=== PATIENT | male | born 2005 | race Caucasian/White ===

== ENCOUNTER 2025-03-07 19:52 | Inpatient (IN) | payer BC ==
[~2025-03-07] VITALS: Ht 175.3 cm; Wt 75.0 kg
[2025-03-07 20:24] LABS: MEAN PLATELET VOLUME 8.8 FL (7.4-10.4); RED CELL DISTRIBUTION WIDTH 12.0 % (11.5-14.5)
[2025-03-07] MEDS: ondansetron/PF 4mg/2ml inj IV ONE (20:24)
[2025-03-07 20:38] LABS: CREATININE 1.16 MG/DL (0.60-1.10); TOTAL CARBON DIOXIDE 16.3 MMOL/L (24-32); eCRCL 102 ML/MIN; eGFR 80 ML/MIN
[2025-03-07] MEDS: ringers solution, lacted 1,000 ML IV ONE (20:43)
--- NOTE | 2025-03-07 20:51 | Physician Documentation ---
History of Present Illness ~ Chief Complaint: Diabetic Complication Stated Complaint: GENERAL WEAKNESS Time Seen by MD: 20:10 HPI A 19-year-old male brought to the emergency department for evaluation of suspected high blood sugar. Patient is a well known type 1 diabetic. Has not insulin pump and a glucose monitor. States he was doing excessive labor that he feels may have triggered his episode of weakness, tachycardia nausea or vomiting with suspected elevated blood sugar. Patient's glucose monitoring device was dislodged from his extremity during the excessive lifting and moving. Patient began to feel shaky began to feel that maybe his blood sugar was going low. He went to a local coffee shop and purchase caffeinated sugar product. Continued to have nausea and vomiting and was brought to the emergency department. Upon arrival in the emergency department patient's insulin pump was interrogated and continues to work. He has received a 1.4 units of Humalog per hour. Patient additionally does have active vomiting. Bedside blood sugar check was initially 253. States he is a little bit admitted once for DKA. Denies any recent symptoms of chest pain, cough, productive sputum recent illness or injuries or travels. No reported dysuria. He is in the process of transgender ring and is on estrogen and spironolactone. Medication Reconciliation Allergies: Coded Allergies: No Known Allergies (Unverified , 03/07/25) Scheduled Estradiol (Estradiol), 1 TAB PO BID, (Reported) Spironolactone (Spironolactone), 1 TAB PO BID, (Reported) Review of Systems Constitutional: Reports: chills, diaphoresis, malaise, weakness Gastrointestinal: Reports: abdominal pain, nausea, vomiting Musculoskeletal: Reports: pain Integumentary: Denies: rash Hematologic/Lymphatic: Denies: blood clots, easy bleeding, easy bruising Endocrine: Reports: excessive sweating, flushing, increased hunger, increased thrist Psychiatric: Reports: no symptoms reported Physical Exam Vital Signs: Temperature: 97.6, Source: Oral, Heart Rate: 96, Respiratory Rate: 18, BP: 110/65, Pulse Oximetry: 100, Weight: 79.000 General Appearance: alert, ill-appearing, moderate distress ENT: normal ENT inspection Sinus: normal inspection Neck: non-tender Respiratory: lungs clear, normal breath sounds Chest: no accessory muscle use Cardiovascular: tachycardia; No: diastolic murmur, systolic murmur Gastrointestinal: normal palpation Rectal: deferred Back: normal inspection Extremities: normal inspection, normal capillary refill Skin: pallor Lymphatic: no adenopathy Neurologic: oriented x4 Psychiatric: appropriate, anxious Progress Results/Orders Results/Orders Orders - SUSANNE NELSON Hospitalist (03/07/25 20:42) Fill Out Med Reconciliation (03/07/25 20:42) Completed Orders - SUSANNE NELSON PAC Ondansetron Inj. (Zofran 4mg/2ml Vial) (03/07/25 20:20) Ringers Solution, Lacted (Lactated Ringe (03/07/25 20:40) Acetone, Serum (03/07/25 20:39) Normal Saline 1000ml (0.9% Sodium Chlori (03/07/25 20:44) Vital Signs 03/07/25 03/07/25 20:07 20:47 Temp 97.6 Pulse 96 92 Resp 18 18 B/P (MAP) 110/65 124/69 (87) Pulse Ox 100 98 O2 Flow Rate 0 Laboratory Tests Test 03/07/25 20:02 03/07/25 20:06 03/07/25 20:41 03/07/25 20:54 Glucometer 242 H 230 H White Blood Count 19.2 H Red Blood Count 4.99 Hemoglobin 14.9 Hematocrit 42.0 Mean Corpuscular Volume 84.2 Mean Corpuscular Hemoglobin 29.9 Mean Corpuscular Hemoglobin Concent 35.5 Red Cell Distribution Width 12.0 Platelet Count 338 Mean Platelet Volume 8.8 Neutrophils (%) (Auto) 87.8 H Lymphocytes (%) (Auto) 6.2 L Monocytes (%) (Auto) 5.5 Eosinophils (%) (Auto) 0.3 Basophils (%) (Auto) 0.2 Neutrophils # (Auto) 16.8 H Lymphocytes # (Auto) 1.2 Monocytes # (Auto) 1.1 H Eosinophils # (Auto) 0.1 Basophils # (Auto) 0.0 CBC Comment Sodium Level 141 Potassium Level 3.6 Chloride Level 101 Carbon Dioxide Level 16.3 L Anion Gap 24 H Blood Urea Nitrogen 23 H Creatinine 1.16 H Estimated GFR/1.73 m2 80 BUN/Creatinine Ratio 19.8 Glucose Level 220 H Hemoglobin A1c 6.5 H Calcium Level 9.9 Phosphorus Level 1.7 L Magnesium Level 1.7 Total Bilirubin 1.9 H Aspartate Amino Transf (AST/SGOT) 22 Alanine Aminotransferase (ALT/SGPT) 20 Alkaline Phosphatase 73 Total Protein 8.6 H Albumin 4.9 Globulin 3.7 Albumin/Globulin Ratio 1.3 Lipase 10 L Chemistry Comments Acetone Level Negative Test 03/07/25 21:32 Glucometer 223 H Medical Decision Making Differential Diagnosis 19-year-old male brought to the emergency department with suspected type 1 diabetic complications differentials to include DKA, HHNK and hypoglycemia versus hyperglycemia, heat exhaustion and/or acute coronary event or acute infectious process. O2 saturations at 100% making clinical suspicion for cardiopulmonary etiology such as CHF, pulmonary embolus or pneumonia not likely. Treatment rendered upon patient's arrival included initial bedside glucose monitoring, vital signs stabilization with IV fluid boluses x2. No requirement for O2 oxygenation. He is screening labs were obtained and reviewed by myself. Patient noted to have low CO2 his gap is open to 24 his blood sugar was 231. Patient has a pending urinalysis screening. White blood cell count was elevated at 19. Suspect this is secondary to demargination from the vomiting. Nausea and vomiting was mitigated with 8 mg of Zofran. Patient has had continued to receive IV hydration. Patient's potassium within normal limits not requiring supplementation. Decision to admit was upon patient's arrival to the emergency department consultation to the hospitalist after reviewing the patient's labs. Patient continues to stabilize with IV hydration not requiring additional insulin. Again his insulin pump was interrogated and continues to be working. Case discussed fully with hospitalist who will admit patient to the hospital. Repeated BNP shows mild correction in the positive way with renal functions, closing of [place] gap and CO2. Patient received continued bedside nursing care and eventually was transported to the floor in safe stable condition with out nausea or vomiting and requesting food. Suspect over exhaustion may have caused patient to become hypoglycemic for triggered hyperglycemic episode and then with the additional carbohydrate load patient put himself in crisis. Departure Disposition: ADMITTED INPATIENT Admitted to Inpatient Unit: to hospitalist Impression: Primary Impression: Hyperglycemic crisis in diabetes mellitus Additional Impression: Diabetes mellitus with ketoacidosis Qualified Codes: E10.10 - Type 1 diabetes mellitus with ketoacidosis without coma Referrals: NO PRIMARY CARE PROVIDER (PCP) Signature Scribe Signature: . Attestation: . SUSANNE NELSON PAC Mar 07, 2025 20:51
[2025-03-07] MEDS: normal saline 1000ml 1,000 ML IV STA (21:06)
[2025-03-07 21:33] LABS: ACETONE NEGATIVE (NEGATIVE)
[2025-03-07 21:50] LABS: LEUKOCYTE ESTERASE ,URINE SMALL (Neg); NITRITES, URINE NEGATIVE (Neg); OCCULT BLOOD,URINE NEGATIVE (Neg)
[2025-03-07 21:51] LABS: UA COLLECTION TYPE NON-SPECIFIED
[2025-03-07 21:56] LABS: MUCUS STRANDS FEW /LPF (Neg); SQUAMOUS EPITHELIAL CELL,UR FEW /LPF (FEW)
[2025-03-07] MEDS ORDERED: SPIR50TA5 PO (22:24)
[2025-03-07] MEDS ORDERED: ESTR2TAB50 PO (22:24)
[2025-03-07] MEDS ORDERED: magnesium Cl slow-release 64mg tablet PO PRN (22:50)
[2025-03-07] MEDS ORDERED: potassium Cl 20 mEq SR tablet PO PRN (22:50)
[2025-03-07] MEDS ORDERED: potassium Cl 40MEQ/1/2NS 520ml 520 ML IV PRN (22:50)
[2025-03-07] MEDS ORDERED: ondansetron/PF 4mg/2ml inj IV PRN (22:50)
[2025-03-07] MEDS ORDERED: magnesium sulf-water 2g/50mL 50 ML IV PRN (22:50)
[2025-03-07] MEDS ORDERED: magnesium hydroxide 30ml (MOM) UD suspension PO PRN (22:50)
[2025-03-07] MEDS ORDERED: mag hydrox/Alum hydrox/simeth 30ml oral suspension PO PRN (22:50)
[2025-03-07] MEDS: normal saline 1000ml 1,000 ML IV SCH (22:50)
[2025-03-07] MEDS ORDERED: magnesium sulf-water 4G/100mL 100 ML IV PRN (22:50)
[2025-03-07 22:58] LABS: CREATININE 1.03 MG/DL (0.60-1.10); TOTAL CARBON DIOXIDE 19.3 MMOL/L (24-32); eCRCL 114 ML/MIN; eGFR > 90 ML/MIN
--- NOTE | 2025-03-07 23:50 | HISTORY AND PHYSICAL-Residence ---
History & Physical Providers to CC Resident Creating Document: JOVITA JOSE, ALEJANDRO ~ History of Present Illness Reason for Admit\Complaint: Weakness History of Present Illness A 19-year-old transgender woman (assigned male at , identifies as female) with a history of type 1 diabetes mellitus (diagnosed 7 years ago) and currently on insulin pump therapy, presented with excessive fatigue, nausea, and multiple episodes of vomiting (5) over the past few hours. 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 During work, her insulin pump became dislodged, and she consumed carbohydrates at a coffee shop believing she was hypoglycemic. Patient uses insulin pump with 33 units of basal and 03/21/10 units of bolus insulin. She has generally well-controlled diabetes (A1C 6.5%) and no recent DKA episodes aside from one episode on diagnosis. She is on gender-affirming hormone therapy with estradiol and spironolactone. On presentation, she was alert and oriented, without delirium. Vitals were stable. Laboratory studies showed: glucose 242 / 230 / 223 mg/dL, bicarbonate 16.3 on admission increased to 19.3 mmol/L, creatinine 1.16 trending down to 1.03 mg/dL, WBC 19.2, mild asymptomatic bacteriuria, and negative acetone. She received 2 L IV fluids and is on maintenance normal saline at 100 mL/hr. Her current clinical picture suggests mild metabolic derangement secondary to dehydration, fasting/starvation ketosis, and possibly mild euglycemic ketosis, which is improving. Primary care provider: Michael Farmer Stone Grader: Ruba Hu [facility] Lives at home with family Allergies: Coded Allergies: No Known Allergies (Unverified , 03/07/25) Home Medications Home Medications Active Reported Spironolactone 50 Mg Tablet 1 Tab PO BID Estradiol 2 Mg Tablet 1 Tab PO BID Past Medical History Past Medical History Type 1 diabetes mellitus Gender dysphoria Past Surgical History Surgical History Comment No past surgical history Past Social History Social History Comment Denied smoking, alcohol, illicit use of drugs ROS ROS Constitutional: Mild fatigue Eyes: No pain, erythema, discharge, blurring of vision ENT: No sore throat, epistaxis, tinnitus Cardiovascular: No Shortness of breath. Chest pressure, chest discomfort, palpitations, syncope, lower extremity edema, paroxysmal nocturnal dyspnea Respiratory: Shortness of breath and cough present, No hemoptysis Gastrointestinal: Normal appetite. No nausea, vomiting, diarrhea, constipation, hematemesis, abdominal pain, bloating, melena or fresh blood Musculoskeletal: No chronmic edema. Integumentary: No change in skin, hair, nails. No swelling, bruising, abrasions Neurologic: No headache, neck pain, numbness or tingling of the extremities, weakness Psychiatric: No delusions, depression, loss of interest in normal activity or change in sleep pattern, hallucinations, suicidal ideations Endocrine: No fatigue, weakness, polydipsia, polyuria, change in appetite, heat or cold intolerance, sweating, dry skin Hematological: No bleeding, petechiae, bruising Allergies: No asthma or urticaria Exam Vitals: Vital Signs Date Time Temp Pulse Resp B/P (MAP) Pulse Ox O2 Delivery O2 Flow Rate FiO2 03/07/25 23:28 22 03/07/25 22:30 63 97 03/07/25 20:47 0 03/07/25 20:07 97.6 General: Awake , alert, and oriented x4, resting comfortably in the bed, in no acute distress HEENT: Atraumatic, normocephalic, EOMI, anicteric sclera ; pink conjunctiva Neck: Trachea midline. Supple, full range of motion, no JVD Cardiac: Regular rhythm, regular rate with no murmurs all over the precordium. Respiratory: Equal breath sounds bilaterally, no tachypnea, no wheezing ,rub or rales, Chest wall is symmetric and without deformity. Gastrointestinal: Abdomen symmetric, non-distended, soft, non-tender, normal bowel sounds x4 quadrant, normoactive, no hepatosplenomegaly Musculoskeletal: No pedal edema, no cyanosis Neurological: Mental status exam: alert and consciousness, orientation, memory, speech - Cranial nerve test: Cranial nerves 2-12 intact - Motor system: Nutrition, Tone 3+, Power 5/5, no involuntary movements - Sensory system: Intact - Reflex testing: Biceps, triceps and knee reflexes 2+ - Cerebellar: Normal Skin: Warm and dry Diagnostic Data Last Recorded Lab Results: 03/07/25200503/07/25 8752 Advance Care Planning Advanced Care plannin - 30 Minutes Additional Plan 1.Type 1 Diabetes Mellitus Stable, mild metabolic derangement High anion gap metabolic acidosis, mild DKA versus starvation/ Patient with insulin pump therapy, blood glucose ~220 mg/dL, bicarbonate 1617 improving, anion gap decreasing, and blood acetone negative Interpretation: Mild metabolic disturbance likely due to dehydration and fasting/starvation Urine ketones positive (80) Plan: Started IV regular insulin infusion 0.1 units/kg/hr, as glucose levels were trending up gradually Target: decrease glucose by 5075 mg/dL per hour. Once glucose <200 mg/dL, reduce insulin infusion to 0.020.05 units/kg/hr and add dextrose, Continue insulin pump therapy (33 units basal and 10/05/10 units bolus) after anion gap closes Overlap insulin drip with subcutaneous basal insulin by 12 hours (using insulin pump) Resume patients home regimen or adjust based on endocrinology consult Resume oral intake as tolerated Monitor blood glucose every 23 hours 2.Volume Depletion / Dehydration Likely secondary to vomiting, poor oral intake, and heat exposure Patient received 2 L of boluses (LR and NS) in the ED Plan: Ordered additional 2 L of LR boluses (patient has received total of 4 L boluses) Continue IV fluids (NS) with monitoring of urine output, electrolytes, and renal function LR at 250 cc/hours, maintenance fluid Transition to oral hydration as tolerated Monitor vital signs and clinical status for ongoing fluid losses 3.Mild Leukocytosis / Possible UTI UA shows asymptomatic bacteriuria; WBC 19.2 may reflect stress response. Plan: Pending urine cultures Hold antibiotics unless patient develops symptoms (fever, dysuria) or infections Trend WBC 4.Electrolyte / Potassium Management Patient is on spironolactone and insulin (via pump), both affecting potassium Plan: Monitor K+ every 6 hours while correcting fluids and managing insulin therapy Replete potassium as indicated: If K+ <4.0 mmol/L, consider oral or IV replacement Avoid overcorrection; monitor for arrhythmias or ECG changes Adjust insulin therapy carefully to prevent hypokalemia EKG ordered 5.Gender-Affirming Hormone Therapy On estradiol and spironolactone. Plan: Continue once patient tolerating oral intake. Monitor potassium and renal function closely Disposition: Admit for monitoring and correction of mild metabolic derangements Educate regarding recognition of early warning signs of DKA. Continue frequent glucose and electrolyte monitoring until stable Code Status: Full code DVT Prophylaxis: Heparin SQ Line/tubes: P IV Nutrition: Carb controlled diet Prognosis: Guarded Jovita Jose MD Internal Medicine Resident, PGY-2 Patient assessed , case discussed with resident . I agree with the assessment and plan above with no changes. Luz Marina Ramos MD Critical Care Date of Service: Mar 08, 2025 Billing Provider: LUZ MARINA RAMOS MDLUCINAV, RES Mar 07, 2025 23:50 LUZ MARINA RAMOS MD Mar 11, 2025 16:43
[2025-03-08] VITALS (9 sets, daily range): BP systolic 101–115; BP diastolic 43–66; PULSE 65–100; RESP 12–22; TEMP 97.8–98.7; O2SAT 95–100
[2025-03-08] MEDS ORDERED: potassium Cl 40MEQ/1/2NS 520ml 520 ML IV PRN ×2 (00:20→02:20)
[2025-03-08] MEDS ORDERED: magnesium sulf-water 2g/50mL 50 ML IV PRN ×2 (00:20→02:20)
[2025-03-08] MEDS ORDERED: potassium Cl 40MEQ/270ML bag 270 ML IV PRN ×2 (00:20→02:20)
[2025-03-08] MEDS ORDERED: sodium phos 15mmol/D5 255mL 255 ML IV PRN ×2 (00:20→02:20)
[2025-03-08 01:42] LABS: ABG BASE EXCESS -4.0 mmol/L (-2.0-3.0); ABG HCO3 20.5 mmol/L (21.0-28.0); ABG OXYGEN SATURATION 97.4 % (94.0-98.0); ABG PCO2 (T) 35.1 mmHg (35.0-48.0); ABG PH (T) 7.383 (7.350-7.450); ABG PO2 (T) 99.7 mmHg (83.0-108.0); ALLEN'S TEST Modified; FCOHb 0.4 % (0.5-1.5); FHHb 2.6 % (0.0-5.0); FIO2 21.0 mmHg/%; FMetHb 0.1 % (0.0-1.5); FO2Hb 96.9 % (94.0-98.0); MODE ROOM AIR; PATIENT TEMPERATURE 36.6; TOTAL HEMOGLOBIN 13.1 G/dl (13.5-17.5)
[2025-03-08] MEDS ORDERED: Insulin Reg/NS 100units/100mL 100 ML IV SCH (02:20)
[2025-03-08] MEDS ORDERED: dextrose 50%-water 50ml dispensing syringe IV PRN (02:20)
[2025-03-08 02:30] LABS: PHOSPHORUS 1.7 MG/DL (2.3-4.5)
[2025-03-08] MEDS: ringers solution, lacted 1,000 ML IV SCH ×3 (02:48→11:48)
[2025-03-08 03:02] LABS: MEAN PLATELET VOLUME 8.8 FL (7.4-10.4); RED CELL DISTRIBUTION WIDTH 12.3 % (11.5-14.5)
[2025-03-08 03:19] LABS: CHOL/HDL RATIO 2.7 (0.00-4.99); CREATININE 0.86 MG/DL (0.60-1.10); LDL CHOLESTEROL 91 MG/DL (50-100); PHOSPHORUS 4.5 MG/DL (2.3-4.5); TOTAL CARBON DIOXIDE 22.6 MMOL/L (24-32); eCRCL 137 ML/MIN; eGFR > 90 ML/MIN
[2025-03-08] MEDS: heparin, porcine 5000 units/ml vial SQ SCH (08:00)
[2025-03-08] MEDS: K and/or MAG REPLACEMENT MC SCH (08:00)
[2025-03-08] MEDS: sodium phosphate inj. 30 MMOL in dextrose 5%-water 250 ML IV SCH (08:00)
[2025-03-08 08:44] LABS: PHOSPHORUS 3.2 MG/DL (2.3-4.5)
[2025-03-08] MEDS: docusate sod 100mg capsule PO SCH (09:57)
[2025-03-08 10:53] LABS: PHOSPHORUS 1.9 MG/DL (2.3-4.5)
--- NOTE | 2025-03-08 10:59 | ELECTROCARDIOGRAPH REPORT ---
[facility] Test Date: 2025-03-08 Test Time: 10:56:27 Pat Name: SATISH KAISER [facility] Patient ID: [facility]-[id number] Room: [place] [id number] Gender: M Project Facilitator: : 2005 Requested By: JOVITA JOSE Order Number: [id number] Reading MD: Dr. DANIELLA Vela Measurements Intervals [place] Rate: 73 P: 55 SC: 169 QRS: 89 QRSD: 102 T: 54 QT: 370 QTc: 408 Interpretive Statements Sinus rhythm Baseline wander in lead(s) II,III,aVF,V6 Electronically Signed On 03-08-2025 16:06:[address] DANIELLA Vela Please click the below link to view image of tracing.
[2025-03-08] MEDS: potassium Cl 20 mEq SR tablet PO PRN (11:48)
[2025-03-08] MEDS: INSULIN LISPRO 100 UNIT/ML INSULN.PEN MULTI-DOSE SQ SCH (12:00)
--- NOTE | 2025-03-08 19:13 | PROGRESS NOTE ---
Daily Progress Note Providers to CC ~ Antibiotic Timeout Antibiotic Ordered?: No Subjective Patient is 19-year-old transgender. Patient wants to use own insulin pump despite of explaining risk and consequences. Objective Vital Signs Date Time Temp Pulse Resp B/P (MAP) Pulse Ox O2 Delivery O2 Flow Rate FiO2 03/08/25 13:30 98.3 71 17 103/55 (71) 100 Room Air 03/08/25 05:02 0.0 21 Result Diagram: 03/08/25 0240 03/08/25 1010 General-patient not in any acute distress, alert awake , age-appropriate, looks comfortable HEENT-atraumatic normocephalic, neck supple without elevated JVD, no thyromegaly or carotid bruit. No lymphadenopathy bilaterally. Eyes-no icterus or pallor seen in eyes Chest-clear to auscultation bilaterally, breathing nonlabored no tachypnea, no wheezing, no crepitation, no crackles. Heart-S1-S2 normal, regular heart rate no murmur Abdomen bowel sounds positive on auscultation, soft nondistended nontender no guarding, no rigidity Skin no active skin rash Neurology-grossly intact, nonfocal alert awake , Extremity- no pedal edema able to move all 4 extremities Psychiatry - patient is not confused or agitated cooperated during physical examination Problem\Assessment\Plan 1.Type 1 Diabetes Mellitus Stable, mild metabolic derangement High anion gap metabolic acidosis, mild DKA versus starvation/ Patient with insulin pump therapy, blood glucose ~220 mg/dL, bicarbonate 1617 improving, anion gap decreasing, and blood acetone negative Interpretation: Mild metabolic disturbance likely due to dehydration and fasting/starvation Urine ketones positive (80) Plan: Started IV regular insulin infusion 0.1 units/kg/hr, insulin drip stopped today Resumed patients home regimen Resumed oral intake as tolerated Monitor blood glucose every 23 hours 2.Volume Depletion / Dehydration Likely secondary to vomiting, poor oral intake, and heat exposure Patient received 2 L of boluses (LR and NS) in the ED Plan: Ordered additional 2 L of LR boluses (patient has received total of 4 L boluses) Continue IV fluids (NS) with monitoring of urine output, electrolytes, and renal function LR at 200 cc/hours, maintenance fluid Transition to oral hydration as tolerated Monitor vital signs and clinical status for ongoing fluid losses 3.Mild Leukocytosis / Possible UTI UA shows asymptomatic bacteriuria; WBC 19.2 may reflect stress response. Plan: urine cultures currently showing mixed tiffany will Hold antibiotics unless patient develops symptoms (fever, dysuria) or infections Trend WBC 4.Electrolyte / Potassium Management Patient is on spironolactone and insulin (via pump), both affecting potassium Plan: Monitor K+ every 6 hours while correcting fluids and managing insulin therapy Replete potassium as indicated: If K+ <4.0 mmol/L, consider oral or IV replacement Avoid overcorrection; monitor for arrhythmias or ECG changes Adjust insulin therapy carefully to prevent hypokalemia 5.Gender-Affirming Hormone Therapy On estradiol and spironolactone. Plan: Continue once patient tolerating oral intake. Monitor potassium and renal function closely Disposition: Admit for monitoring and correction of mild metabolic derangements Educate regarding recognition of early warning signs of DKA. Continue frequent glucose and electrolyte monitoring until stable Code Status: Full code DVT Prophylaxis: Heparin SQ Line/tubes: P IV Nutrition: Carb controlled diet Patient's current condition is guarded we will continue to follow patient in AM . Date of Service: Mar 08, 2025 Billing Provider: CALEB PHOENIX MD Common Visit Codes: [id number] INP/OBS CARE(HIGH) CALEB PHOENIX MD Mar 08, 2025 19:13
[2025-03-09 04:36] LABS: MEAN PLATELET VOLUME 8.3 FL (7.4-10.4); RED CELL DISTRIBUTION WIDTH 12.3 % (11.5-14.5)
[2025-03-09 04:59] LABS: CREATININE 0.59 MG/DL (0.60-1.10); TOTAL CARBON DIOXIDE 29.4 MMOL/L (24-32); eCRCL 200 ML/MIN; eGFR > 90 ML/MIN
--- NOTE | 2025-03-09 20:10 | DISCHARGE SUMMARY ---
Discharge Summary Providers to CC ~ Discharge Summary Admission Diagnosis: DKA HYPERGLYCEMIC CRISIS Hospital Course DATE OF ADMISSION: 03/07/2025 DATE OF DISCHARGE:03/09/2025 CBC testing done on March 09, 2025 WBC 6.9, hemoglobin 11.7 hematocrit 33.3 platelet count 202. Serum chemistry done on March 09, 2025 sodium 143 potassium 3.4 creatinine 0.59 GFR 90 hemoglobin A1c 6.5. Normal lipid and liver enzymes. Urine culture showed mixed tiffany Discharge Diagnosis\\Comment: Type 1 Diabetes Mellitus Stable, mild metabolic derangement High anion gap metabolic acidosis, mild DKA versus starvation Volume Depletion / Dehydration .Mild Leukocytosis / Possible UTI Electrolyte / Potassium Management Gender-Affirming Hormone Therapy Operations\\Procedures: None Consultants: None Complications: None Condition on DC: Stable Continued Medications: Estradiol (Estradiol) 2 Mg Tablet 1 TAB PO BID Spironolactone (Spironolactone) 50 Mg Tablet 1 TAB PO BID Discharge Summary: As per admitting provider's history and physical note" A 19-year-old [facility] woman (assigned male at , identifies as female) with a history of type 1 diabetes mellitus (diagnosed 7 years ago) and currently on insulin pump therapy, presented with excessive fatigue, nausea, and multiple episodes of vomiting (5) over the past few hours. 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 During work, her insulin pump became dislodged, and she consumed carbohydrates at a coffee shop believing she was hypoglycemic. Patient uses insulin pump with 33 units of basal and 10/05/10 units of bolus insulin. She has generally well-controlled diabetes (A1C 6.5%) and no recent DKA episodes aside from one episode on diagnosis. She is on gender-affirming hormone therapy with estradiol and spironolactone. On presentation, she was alert and oriented, without delirium. Vitals were stable. Laboratory studies showed: glucose 242 / 230 / 223 mg/dL, bicarbonate 16.3 on admission increased to 19.3 mmol/L, creatinine 1.16 trending down to 1.03 mg/dL, WBC 19.2, mild asymptomatic bacteriuria, and negative acetone. She received 2 L IV fluids and is on maintenance normal saline at 100 mL/hr. Her current clinical picture suggests mild metabolic derangement secondary to dehydration, fasting/starvation ketosis, and possibly mild euglycemic ketosis, which is improving" During hospitalization patient was treated for .1.Type 1 Diabetes Mellitus Stable, mild metabolic derangement High anion gap metabolic acidosis, mild DKA versus starvation/ Patient with insulin pump therapy, blood glucose ~220 mg/dL, bicarbonate 1617 improving, anion gap decreasing, and blood acetone negative Interpretation: Mild metabolic disturbance likely due to dehydration and fasting/starvation Urine ketones positive (80) Plan: Started IV regular insulin infusion 0.1 units/kg/hr, insulin drip stopped yesterday Resumed patients home regimen Resumed oral intake as tolerated Monitor blood glucose every 23 hours 2.Volume Depletion / Dehydration Likely secondary to vomiting, poor oral intake, and heat exposure Patient received 2 L of boluses (LR and NS) in the ED Plan: Ordered additional 2 L of LR boluses (patient has received total of 4 L boluses) Continue IV fluids (NS) with monitoring of urine output, electrolytes, and renal function LR at 200 cc/hours, maintenance fluid Transition to oral hydration as tolerated Monitor vital signs and clinical status for ongoing fluid losses 3.Mild Leukocytosis / Possible UTI UA shows asymptomatic bacteriuria; WBC 19.2 may reflect stress response. Plan: urine cultures currently showing mixed tiffany will Hold antibiotics unless patient develops symptoms (fever, dysuria) or infections Trend WBC 4.Electrolyte / Potassium Management Patient is on spironolactone and insulin (via pump), both affecting potassium Plan: Monitor K+ every 6 hours while correcting fluids and managing insulin therapy Replete potassium as indicated: If K+ <4.0 mmol/L, consider oral or IV replacement Avoid overcorrection; monitor for arrhythmias or ECG changes Adjust insulin therapy carefully to prevent hypokalemia 5.Gender-Affirming Hormone Therapy On estradiol and spironolactone. Plan: Continue once patient tolerating oral intake. Monitor potassium and renal function closely Disposition: Admit for monitoring and correction of mild metabolic derangements Educate regarding recognition of early warning signs of DKA. Continue frequent glucose and electrolyte monitoring until stable Code Status: Full code DVT Prophylaxis: Heparin SQ Line/tubes: P IV Nutrition: Carb controlled diet Patient is feeling better she has been afebrile and getting discharged home in stable condition. Patient is seen and examined on the day of discharge. All labs, diagnostic workup and discharge plan discussed with patient and patient's mother in detail before her discharge. All questions and queries answered to the best of my professional medical knowledge. I heard patient's concerns and address appropriately. Patient was cleared by Physical therapy team for home discharge . college or [employer] business manager involved in patient's discharge plan. Patient wants to use own insulin pump despite of explaining risk and consequences. Discharge instructions provided to the patient. please follow up PCP, branding specialist in outpatient setting in 1-2 weeks. Resume your insulin pump as recommended by your provider . Keep blood sugar log document for 2-3 weeks ( fasting and nonfasting blood sugar) before breakfast and after dinner and showed the log document to PCP or branding specialist. Continue strict diabetic diet. Continue to monitor labs as recommended by PCP for diabetes General-patient not in any acute distress, alert awake , age-appropriate, looks comfortable HEENT-atraumatic normocephalic, neck supple without elevated JVD, no thyromegaly or carotid bruit. No lymphadenopathy bilaterally. Eyes-no icterus or pallor seen in eyes Chest-clear to auscultation bilaterally, breathing nonlabored no tachypnea, no wheezing, no crepitation, no crackles. Heart-S1-S2 normal, regular heart rate no murmur Abdomen bowel sounds positive on auscultation, soft nondistended nontender no guarding, no rigidity Skin no active skin rash Neurology-grossly intact, nonfocal alert awake , Extremity- no pedal edema able to move all 4 extremities Psychiatry - patient is not confused or agitated cooperated during physical examination *Problems/Diagnosis: (1) Hyperglycemic crisis in diabetes mellitus Status: Acute Total Time Spent on D/C: > 30 Minutes Date of Service: Mar 09, 2025 Billing Provider: CALEB PHOENIX MD Common Visit Codes: 13465-DZV/OBS DISCH DAY >30min CALEB PHOENIX MD Mar 09, 2025 20:07
== END 2025-03-09 10:13 | disposition home or self-care (01) | DRG 639 ==
LOC: ER 19:53 → ED HOLD 21:32 → EDBEDREQ 22:55 → PCU 3S 23:48 → SUR 3N 03-08 13:00
PROVIDERS: ADMIT Internal Medicine Pulmonary Disease; ATTEND Internal Medicine
DX: E10.10 Type 1 diabetes mellitus with ketoacidosis without coma (principal); E86.0 Dehydration; D72.829 Elevated white blood cell count, unspecified; T73.0XXA Starvation, initial encounter; E10.649 Type 1 diabetes mellitus with hypoglycemia without coma; X58.XXXA Exposure to other specified factors, initial encounter; Z79.4 Long term (current) use of insulin
CPT/HCPCS: 36415; 36600; 80048; 80053; 80061; 81001; 82009; 82803; 82948; 83036; 83605; 83690; 83735; 84100; 84132; 85018; 85025; 87081; 87088; 93005; 96361; 96374; 99285; G0378; J1815; J2405; J7030; J7120; J7121